=== PATIENT | male | born 1965 | race Caucasian/White ===

== ENCOUNTER 2022-04-26 16:54 | Emergency (ER) | payer OTHER ==
--- NOTE | 2022-04-26 17:25 | ED ---
General Adult HPI - General Source: patient, EMS, RN notes reviewed Mode of arrival: EMS Limitations: no limitations <PepitoKareem - Last Filed: 04/26/22 20:43> <Collin Gray - Last Filed: 04/27/22 05:08> - General Chief complaint: Alcohol Stated complaint: mental health Time Seen by Provider: 04/26/22 17:00 - History of Present Illness Initial comments: 56-year-old male with a history of medication abuse of alcohol abuse who was at [facility] from 4 days ago until this morning when he left AGAINST MEDICAL ADVICE. Patient apparently was wandering around the locale he was at and was found be complaining of feeling suicidal. He does have a history depression and bipolar disorder and schizophrenia as well as a substance abuse. He states he suicidal he thought was slitting his wrists. He did have alcohol today. He denies any trauma no other complaints or modifying factors at this time (Kareem Beyer) - Related Data Allergies Allergy/AdvReac Type Severity Reaction Status Date / Time No Known Allergies Allergy Verified 04/26/22 21:13 Review of Systems ROS Other: All systems not noted in ROS Statement are negative. <Kareem Beyer - Last Filed: 04/26/22 20:43> ROS Other: All systems not noted in ROS Statement are negative. <Collin Gray - Last Filed: 04/27/22 05:08> ROS Statement: Those systems with pertinent positive or pertinent negative responses have been documented in the HPI. Past Medical History Past Medical History: Diabetes Mellitus History of Any Multi-Drug Resistant Organisms: None Reported Past Surgical History: Orthopedic Surgery Past Psychological History: Bipolar, Depression, Schizophrenia Smoking Status: Current every day smoker Past Alcohol Use History: Rare Past Drug Use History: Cocaine, Heroin, Marijuana, Methamphetamine <Kareem Beyer - Last Filed: 04/26/22 20:43> General Exam Limitations: no limitations General appearance: alert, in no apparent distress Head exam: Present: atraumatic, normocephalic, normal inspection Eye exam: Present: normal appearance, PERRL, EOMI. Absent: scleral icterus, conjunctival injection, periorbital swelling ENT exam: Present: normal exam, mucous membranes moist Neck exam: Present: normal inspection. Absent: tenderness, meningismus, lymphadenopathy Respiratory exam: Present: normal lung sounds bilaterally. Absent: respiratory distress, wheezes, rales, rhonchi, stridor Cardiovascular Exam: Present: regular rate, normal rhythm, normal heart sounds. Absent: systolic murmur, diastolic murmur, rubs, gallop, clicks GI/Abdominal exam: Present: soft, normal bowel sounds. Absent: distended, tenderness, guarding, rebound, rigid Extremities exam: Present: normal inspection, full ROM, normal capillary refill. Absent: tenderness, pedal edema, joint swelling, calf tenderness Back exam: Present: normal inspection Neurological exam: Present: alert, oriented X3, CN II-XII intact Psychiatric exam: Present: depressed, flat affect, suicidal ideation Skin exam: Present: warm, dry, intact, normal color. Absent: rash <Kareem Beyer - Last Filed: 04/26/22 20:43> - General Exam Comments Initial Comments: This is a well-developed thin appearing male who is awake alert oriented 4 does have the smell of alcohol conjoiners on his breath (Kareem Beyer) Course <Kareem Beyer - Last Filed: 04/26/22 20:43> Vital Signs 04/26/22 04/27/22 17:03 02:32 Pulse Rate 70 68 Respiratory 18 16 Rate Blood Pressure 145/81 145/68 O2 Sat by Pulse 95 98 Oximetry - Reevaluation(s) Reevaluation #1: 04/26/22 20:43 The patient is pending EPS evaluation and will be endorsed to Dr. Gray at our shift change (Kareem Beyer) Medical Decision Making - Lab Data Result diagrams: 04/27/22 02:31 04/27/22 02:31 <Collin Gray - Last Filed: 04/27/22 05:08> - Lab Data Lab Results 04/26/22 04/27/22 04/27/22 Range/Units 17:13 02:31 02:31 WBC 8.0 (3.8-10.6) k/uL RBC 4.62 (4.30-5.90) m/uL Hgb 13.5 (13.0-17.5) gm/dL Hct 40.1 (39.0-53.0) % MCV 86.9 (80.0-100.0) fL MCH 29.1 (25.0-35.0) pg MCHC 33.5 (31.0-37.0) g/dL RDW 13.2 (11.5-15.5) % Plt Count 433 (150-450) k/uL MPV 8.2 Neutrophils % 47 % Lymphocytes % 42 % Monocytes % 6 % Eosinophils % 2 % Basophils % 1 % Neutrophils # 3.7 (1.3-7.7) k/uL Lymphocytes # 3.3 (1.0-4.8) k/uL Monocytes # 0.5 (0-1.0) k/uL Eosinophils # 0.2 (0-0.7) k/uL Basophils # 0.0 (0-0.2) k/uL Sodium 139 (137-145) mmol/L Potassium 4.7 (3.5-5.1) mmol/L Chloride 105 (98-107) mmol/L Carbon Dioxide 24 (22-30) mmol/L Anion Gap 10 mmol/L BUN 15 (9-20) mg/dL Creatinine 0.98 (0.66-1.25) mg/dL Est GFR (CKD-EPI)AfAm >90 (>60 ml/min/1.73 sqM) Est GFR (CKD-EPI)NonAf 86 (>60 ml/min/1.73 sqM) Glucose 99 (74-99) mg/dL Calcium 9.4 (8.4-10.2) mg/dL Total Bilirubin 0.3 (0.2-1.3) mg/dL AST 19 (17-59) U/L ALT 13 (4-49) U/L Alkaline Phosphatase 72 (38-126) U/L Total Protein 6.6 (6.3-8.2) g/dL Albumin 3.9 (3.5-5.0) g/dL Urine Opiates Screen Not Detected (NotDetected) Ur Oxycodone Screen Not Detected (NotDetected) Urine Methadone Screen Not Detected (NotDetected) Ur Propoxyphene Screen Not Detected (NotDetected) Ur Barbiturates Screen Not Detected (NotDetected) U Tricyclic Antidepress Not Detected (NotDetected) Ur Phencyclidine Scrn Not Detected (NotDetected) Ur Amphetamines Screen Detected H (NotDetected) U Methamphetamines Scrn Not Detected (NotDetected) U Benzodiazepines Scrn Not Detected (NotDetected) Urine Cocaine Screen Not Detected (NotDetected) U Marijuana (THC) Screen Not Detected (NotDetected) Disposition <Kareem Beyer - Last Filed: 04/26/22 20:43> Is patient prescribed a controlled substance at d/c from ED?: No <Collin Gray - Last Filed: 04/27/22 05:08> Clinical Impression: Mood disorder Disposition: HOME SELF-CARE Condition: Good Instructions (If sedation given, give patient instructions): Mood Disorders (ED ) Referrals: None,Stated [Primary Care Provider] - 1-2 days
[2022-04-26] MEDS ORDERED: MELATONIN 5 MG TABLET PO SCH (21:00)
[2022-04-26 22:51] LABS: Amphetamine Screen,Urine Detected (NotDetected); Barbiturate Screen,Urine Not Detected (NotDetected); Benzodiazepines Screen,Urine Not Detected (NotDetected); Cocaine Screen,Urine Not Detected (NotDetected); Methadone Screen, Urine Not Detected (NotDetected); Opiate Screen,Urine Not Detected (NotDetected); Oxycodone Screen, Urine Not Detected (NotDetected); Phencyclidine Screen,Urine Not Detected (NotDetected); Tricyclic Antidepressant,Urine Not Detected (NotDetected); Urn Cannabinoid Scrn Not Detected (NotDetected)
[2022-04-27 02:34] VITALS: BP 145/68; PULSE 68; RESP 16
[2022-04-27 03:08] LABS: Basophils % (A) 1 %; Eosinophils # (A) 0.2 k/uL (0-0.7); Eosinophils % (A) 2 %; HCT 40.1 % (39.0-53.0); HGB 13.5 gm/dL (13.0-17.5); Lymphocytes # (A) 3.3 k/uL (1.0-4.8); Lymphocytes % (A) 42 %; MCH 29.1 pg (25.0-35.0); MCHC 33.5 g/dL (31.0-37.0); MCV 86.9 fL (80.0-100.0); Mean Platelet Volume 8.2; Monocytes # (A) 0.5 k/uL (0-1.0); Monocytes % (A) 6 %; Neutrophils # (A) 3.7 k/uL (1.3-7.7); Neutrophils % (A) 47 %; Platelet Count 433 k/uL (150-450); RBC 4.62 m/uL (4.30-5.90); RDW 13.2 % (11.5-15.5)
[2022-04-27 03:18] LABS: ALT 13 U/L (4-49); AST 19 U/L (17-59); African American GFR (CKD) >90 (>60 ml/min/1.73 sqM); Albumin 3.9 g/dL (3.5-5.0); Alkaline Phosphatase 72 U/L (38-126); Anion Gap 10 mmol/L; Blood Urea Nitrogen 15 mg/dL (9-20); Calcium 9.4 mg/dL (8.4-10.2); Carbon Dioxide 24 mmol/L (22-30); Chloride 105 mmol/L (98-107); Glucose 99 mg/dL (74-99); Non-African American GFR(CKD) 86 (>60 ml/min/1.73 sqM); Potassium 4.7 mmol/L (3.5-5.1); Sodium 139 mmol/L (137-145); Total Bilirubin 0.3 mg/dL (0.2-1.3); Total Protein 6.6 g/dL (6.3-8.2)
== END 2022-04-27 05:19 | disposition home or self-care (01) ==
LOC: EC 16:54
DX: F39 Unspecified mood [affective] disorder (principal); E11.9 Type 2 diabetes mellitus without complications
CPT/HCPCS: 36415; 80053; 80306; 82075; 85025; 99285